=== PATIENT | male | born 1990 | race Caucasian/White ===

== ENCOUNTER 2023-12-07 14:13 | Emergency (ER) | payer BC, SELFPAY ==
[2023-12-07 14:17] VITALS: BP 121/89
--- NOTE | 2023-12-07 14:19 | ED.GENMED ---
History of Present Illness
General
Chief Complaint: Abdominal Symptoms
Time Seen by Provider: 12/07/23 14:19
History of Present Illness
History of Present Illness:
HPI: The patient presents due to a general unwell feeling. He has a history of ulcerative colitis and had been on mesalamine DR for the last 7 years. However, the patient missed dosing for 2 months recently and resumed it again 10 days ago. For
the first month he did not have any symptoms but then he started having symptoms again. He has some generalized achiness in the extremities as well. His GI doctor is at [facility].
EXAM:
GENERAL: Well appearing but appears in mild distress
HEENT: Moist oral mucosa
CARDIOVASCULAR: No murmurs, normal heart rate, regular rhythm, No chest wall tenderness
PULMONARY: No respiratory distress, breath sounds are clear and equal
ABDOMEN: Soft with no peritoneal signs, no significant tenderness
NEUROLOGIC: Excellent strength all extremities, no coordination deficits
PSYCHIATRIC: Appropriate mental status, normal insight and judgement
EXTREMITIES: Nontender, no edema, moves all extremities equally
SKIN: No rash, no lesions
TIME OF INITIAL ENCOUNTER: 2 PM
NUMBER AND COMPLEXITY OF PROBLEMS ADDRESSED AT THE ENCOUNTER
� Chronic conditions affecting care: Ulcerative colitis
� Acute Exacerbation and/or Progression of Chronic Illness: This is an acute exacerbation of ulcerative colitis
� Differential Diagnosis includes: Ulcerative colitis exacerbation, bowel obstruction, perforation, abscess
AMOUNT AND/OR COMPLEXITY OF DATA TO BE REVIEWED AND ANALYZED
� I performed an independent evaluation of and my interpretation is:
EKG:
CT: CT imaging personally reviewed and I agree with radiologist interrogation of diffuse colitis
X-rays:
Laboratory Studies: White count 18.4, hemoglobin 15.6, platelets are 513, CRP is markedly elevated at 236
Other:
� Review of other/old records: I reviewed the records from urgent care�it is notable for this of a gravity in the urine over 1.030 and significant ketonuria
� Clinical information was obtained by an independent historian: I spoke to the mother at bedside
� Prescriptions/Medications Considered but not given:
� Further testing considered but not performed:
RISK OF COMPLICATIONS AND/OR MORBIDITY OR MORTALITY OF PATIENT MANAGEMENT
� Social determinants of health affecting care: Lives at home
� Discussion with other providers: See below
� Escalation of care including admission/observation vs risk of discharge considered: White count and CRP are elevated. CT imaging shows diffuse colitis. However the patient feels markedly improved after 2 L of fluid were
given. He has resumed mesalamine recently. I attempted to contact GI at [facility] however could not get through to them. I then James texted our GI doctor on-call for the recommendations. Overall the patient feels improved and he will try to
follow-up with [facility] this week.
Phy Exam
Physical Exam
Physical Exam:
See HPI
Course
Orders/Labs/Results
Orders:
Orders
12/07/23 14:20
0.9% Sodium Chloride 1000 ml [Nss] 1,000 ml IV BOLUS
12/07/23 14:37
CT Abd/pel W Iv And Oral Contr Urgent
Comment:
Reason For Exam: abd pain h/o UC, leukocytosis
0.9% Sodium Chloride 1000 ml [Nss] 1,000 ml IV BOLUS
Iohexol [Omnipaque] See Protocol PO NOW STA
12/07/23 14:42
CRP [C-Reactive Protein] Urgent
Complete Blood Count/With Diff Urgent
Comprehensive Metabolic Panel Urgent
Lipase Urgent
Abnormal Lab Results
12/07/23
14:42
WBC 18.4 H 10^3/uL
(4.8-10.8)
Plt Count 513 H 10^3/uL
(130-400)
Abs Immat Gran (auto) 0.5 H 10^3/uL
(0-0.05)
Absolute Neuts (auto) 11.9 H 10^3/uL
(1.4-6.5)
Absolute Monos (auto) 2.8 H 10^3/uL
(0.1-0.6)
Immature Gran % 2.8 H %
(0-0.5)
Lymphocytes % 12.8 L %
(20.5-51.1)
Monocytes % 15.2 H %
(1.7-9.3)
Glucose 102 H mg/dl
(70-99)
C-Reactive Protein 235.40 H mg/L
(0.0-10.00)
12/07/23 14:42
12/07/23 14:42
Vital Signs
Initial and Last Documented VS:
Initial Vital Signs
Temp Pulse Resp BP Pulse Ox
98.3 F 118 16 121/89 98
12/07/23 14:17 12/07/23 14:17 12/07/23 14:17 12/07/23 14:17 12/07/23 14:17
Last Documented Vital Signs
Temp Pulse Resp BP Pulse Ox
98.3 F 100 18 124/75 100
12/07/23 14:17 12/07/23 17:45 12/07/23 17:45 12/07/23 17:45 12/07/23 17:45
*Critical Care Note
Total Time (30-74mins, 75-104mins- exclusive of procedures): Not Applicable
ED Attending Note
-
Portions of this chart may have been created with voice recognition software.� Occasional wrong word or��sound alike� substitutions may have occurred due to the inherent limitations of voice recognition software.
Discharge Plan
Departure
Patient Disposition: Home (Routine Discharge)
Date of Disposition: 12/07/23
Time of Disposition: 17:31
Patient with high blood pressure during this ER visit?: Yes
Discharge Problem:
Ulcerative colitis, acute
Instructions: Ulcerative colitis in adults, BLOOD PRESSURE
Prescriptions:
New
ondansetron HCl 4 mg tablet
4 mg PO Q8H PRN (Reason: nausea and vomiting) Qty: 14 0RF
Referrals:
Jorge Luis Enrique MD [Active] - Next open appointment
NONE,* [Family Provider] -
Activity Restrictions/Additional Instructions:
The white blood cell count is elevated 18.4 and your C-reactive protein is elevated 235. The CAT scan shows acute colitis from the cecum down to the distal descending colon. There is no sign of complication such as perforation or abscess.
Continue mesalamine. I recommend you follow-up with your GI doctor. I have given you the contact information for a local GI doctor here if needed.
Interventions
Interventions:
*Risk Screen - Suicide Last Done: 12/07/23 14:14
*General Assessment Last Done: 12/07/23 14:14
*Neglect/Abuse Screening Last Done: 12/07/23 14:14
ED- Fall Risk Assessment Last Done: 12/07/23 15:22
*ED COVID-19 Vaccine History Last Done: 12/07/23 14:14
*Nursing Disposition Last Done: 12/07/23 17:45
BG-Plqezu-Njkuirmwdn Assessment Last Done: 12/07/23 15:22
Discharge Date and Time
Discharge Date/Time: 12/07/23 18:24
Print Language: PASHTO
[2023-12-07] MEDS: NSS 1000 IV ×2 (14:42→14:43)
[2023-12-07] MEDS: OMNIPAQUE 50 ML PO (14:48)
[2023-12-07 14:57] LABS: % Basophils 1.2 % (0-2); % Eosinophils 3.2 % (0-6); % Immature Granulocytes 2.8 % (0-0.5); % Lymphocytes 12.8 % (20.5-51.1); % Monocytes 15.2 % (1.7-9.3); % Neutrophils 64.8 % (42.2-75.2); Absolute Basophils 0.2 10^3/uL (0-0.2); Absolute Eosinophils 0.6 10^3/uL (0-0.7); Absolute Immature Granulocytes 0.5 10^3/uL (0-0.05); Absolute Lymphocytes 2.4 10^3/uL (1.2-3.4); Absolute Monocytes 2.8 10^3/uL (0.1-0.6); Absolute Neutrophils 11.9 10^3/uL (1.4-6.5); Hematocrit 42.6 % (39.0-52.0); Hemoglobin 15.6 g/dL (13.0-18.0); Mean Corp Hgb Conc. 36.6 g/dL (33.0-37.0); Mean Corpuscular Hgb 30.5 pg (27.0-31.0); Mean Corpuscular Volume 83.2 fL (80.0-94.0); Mean Platelet Volume 8.1 fL (7.4-10.4); Nucleated Red Blood Cells % 0 % (-); Platelet Count 513 10^3/uL (130-400); Red Blood Cell Count 5.12 10^6/uL (4.70-6.10); White Blood Cell Count 18.4 10^3/uL (4.8-10.8)
[2023-12-07 15:04] LABS: ALT (SGPT) 15 U/L (0-50); AST (SGOT) 18 U/L (17-59); Albumin 3.5 g/dl (3.5-5.0); Alkaline Phosphatase 103 U/L (38-126); Blood Urea Nitrogen 9 mg/dl (9-20); Calcium 9.2 mg/dl (8.4-10.2); Carbon Dioxide 25 mmol/L (22-30); Chloride 98 mmol/L (98-107); Glucose 102 mg/dl (70-99); Lipase 33 U/L (23-300); Sodium 138 mmol/L (135-145); Total Bilirubin 0.6 mg/dl (0.2-1.3); Total Protein 6.3 g/dl (6.3-8.2); eGFR > 60.00
[2023-12-07 16:00] VITALS: BP 132/80
[2023-12-07 17:45] VITALS: BP 124/75
== END 2023-12-07 18:24 | disposition home or self-care (01) ==
LOC: EMR 14:13
PROVIDERS: EMERGENCY PHYSICIAN Emergency Medicine
DX: K51.90 Ulcerative colitis, unspecified, without complications (principal); R03.0 Elevated blood-pressure reading, without diagnosis of hypertension; Z88.8 Allergy status to other drugs, medicaments and biological substances
CPT/HCPCS: 99284; 96360; 74177; 80053; 83690; 85025; 86140; Q9967